=== PATIENT | female | born 1980 | race Caucasian/White ===

== ENCOUNTER 2021-07-16 19:29 | Emergency (ER) | payer MEDICAID ==
[~2021-07-16] VITALS: Ht 165.1 cm; Wt 75.0 kg
[2021-07-16] MEDS ORDERED: KETOROLAC 30MG/ML VIAL IM ONE (23:30)
[2021-07-17] MEDS ORDERED: METHOCARBAMOL 500MG TABLET PO NR (00:30)
[2021-07-17] MEDS ORDERED: METH-653 MT (00:31)
[2021-07-17 00:47] VITALS: BP 126/75
== END 2021-07-17 00:50 | disposition home or self-care (01) ==
LOC: ER 19:29
DX: M79.12 Myalgia of auxiliary muscles, head and neck (principal)
CPT/HCPCS: 71045; 81025; 96372; 99283; J1885